=== PATIENT | female | born 1955 | race Caucasian/White ===

== ENCOUNTER → 2021-05-15 12:05 | Outpatient (CLI) | payer MEDICARE, SELFPAY ==
[2021-05-15 21:30] LABS: COVID19 - ORCAS (NP or Nasal) POSITIVE (Negative)
== END ==
PROVIDERS: PCP Physician Assistant; Visit Provider Physician Assistant
DX: U07.1 COVID-19 (principal)
CPT/HCPCS: U0003

== ENCOUNTER → 2024-09-14 10:25 | Outpatient (CLI) | payer MEDICARE, SELFPAY ==
--- NOTE | 2024-09-14 10:28 | DI.US.S_ITS ---
PROCEDURE: US EXTREMITY NONVASC LOWER LT INDICATIONS: left thigh trauma, hematoma. TECHNIQUE: Real-time scanning was performed of the left anterior thigh, with image documentation. COMPARISON: , CR, XR FEMUR LT MIN 2V, 09/14/2024, 10:26. FINDINGS: Sonographic evaluation of the left anterior thigh deep to the area superficial bruising demonstrates multiple areas of mixed hyper echogenicity in the subcutaneous fat, interspersed with hypoechoic/cystic regions. IMPRESSION: Likely evolving left anterior thigh subcutaneous ill-defined lesion, likely representing a resolving hematoma in the context of recent trauma. Dictated by: Curtis Culver M.D. on 09/14/2024 at 14:44 Approved by: Curtis Culver M.D. on 09/14/2024 at 14:47
--- NOTE | 2024-09-14 10:28 | DI.RAD.S_ITS ---
PROCEDURE: XR FEMUR LT MIN 2V INDICATIONS: Left thigh trauma, bruising. Osteoporosis TECHNIQUE: 4 views of the femur were acquired. COMPARISON: None. FINDINGS: Bones: Small cortical fragment laterally adjacent to the greater trochanter may represent sequelae remote avulsion fracture versus possible calcific tendinopathy. Otherwise, no fractures or dislocations. No suspicious bony lesions. Soft tissues: No suspicious soft tissue calcifications or masses. IMPRESSION: Small cortical fragment laterally adjacent to the greater trochanter consistent with possible sequelae of remote trauma versus calcific tendinopathy. Dictated by: Curtis ePtersen M.D. on 09/15/2024 at 2:13 Approved by: Curtis Petersen M.D. on 09/15/2024 at 2:14
--- NOTE | 2024-09-14 10:28 | DI.RAD.S_ITS ---
PROCEDURE: XR SACRUM COCCYX MIN 2V INDICATIONS: Injury. sacral pain. osteoporosis. TECHNIQUE: 3 views of the sacrum and coccyx acquired. COMPARISON: None. FINDINGS: Bones: No fractures or dislocations. No suspicious bony lesions. Soft tissues: Visualized bowel gas pattern is normal. No suspicious soft tissue densities. IMPRESSION: No acute sacral or coccygeal fractures. No gross soft tissue abnormalities. Dictated by: Chris Cui M.D. on 09/14/2024 at 11:01 Approved by: Chris Cui M.D. on 09/14/2024 at 11:01
--- NOTE | 2024-09-14 10:28 | DI.RAD.S_ITS ---
PROCEDURE: XR PELVIS 1-2V INDICATIONS: pelvis pain s/p fall TECHNIQUE: Single AP view of the pelvis acquired. COMPARISON: None. FINDINGS: Bones: Small cortical fragment laterally adjacent to the left greater trochanter may represent sequelae of remote avulsion trauma versus calcific tendinopathy. 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 No suspicious bony lesions. Soft tissues: Visualized bowel gas pattern is normal. No suspicious soft tissue calcifications. IMPRESSION: Small cortical fragment laterally adjacent to the left greater trochanter possibly representing sequelae of remote trauma versus calcific tendinopathy. Degenerative changes otherwise noted. Dictated by: Curtis Petersen M.D. on 09/15/2024 at 2:15 Approved by: Curtis Petersen M.D. on 09/15/2024 at 2:16
== END ==
PROVIDERS: PCP Physician Assistant; Referring Provider Physician Assistant; Visit Provider Physician Assistant
DX: M53.3 Sacrococcygeal disorders, not elsewhere classified (principal); R10.2 Pelvic and perineal pain; S70.12XA Contusion of left thigh, initial encounter; M81.0 Age-related osteoporosis without current pathological fracture; X58.XXXA Exposure to other specified factors, initial encounter
CPT/HCPCS: 72170; 72220; 73552; 76882